=== PATIENT | male | born 1965 | race Hispanic/Latino ===

== ENCOUNTER → 2023-06-06 | Outpatient (CLI) | payer SELFPAY ==
[~2023-06-06] MED LIST: NEBI10TA12 PO; TAMS-1 PO; TRAM50TA4 PO
[2023-06-06 11:25] LABS: CREATININE 1.5 mg/dL (0.5-1.5); POTASSIUM 4.4 mmol/L (3.5-5.1)
[2023-06-06 11:31] LABS: BASOPHILS # (AUTO) 0.04 K/uL (0.00-0.20); BASOPHILS % (AUTO) 0.5 % (0.0-5.0); EOSINOPHILS % (AUTO) 2.3 % (0.0-8.0); HEMATOCRIT 49.8 % (42-54); IMMATURE GRANULOCYTE ABSOLUTE 0.02 K/uL (0-1); LYMPHOCYTES # (AUTO) 1.1 K/uL (1.0-4.8); LYMPHOCYTES % (AUTO) 13.1 % (21.0-51.0); MEAN CORPUSCULAR HEMOGLOBIN 31.6 pg (27.0-33.0); MEAN CORPUSCULAR HGB CONC 34.7 g/dL (32.0-36.0); MEAN CORPUSCULAR VOLUME 90.9 fL (79-99); MONOCYTES # (AUTO) 0.8 K/uL (0.1-1.0); MONOCYTES % (AUTO) 9.8 % (3.0-13.0); NEUTROPHILS # (AUTO) 6.3 K/uL (1.8-7.7); NEUTROPHILS % (AUTO) 74.1 % (40.0-77.0); PLATELET COUNT (AUTO) 203 K/uL (130-400); RED BLOOD CELL COUNT(AUTO) 5.48 MIL/uL (4.50-6.20); RED CELL DISTRIBUTION WIDTH 12.3 % (11.0-15.5); WHITE BLOOD COUNT (AUTO) 8.6 K/uL (4.8-10.8)
[2023-06-06 11:56] VITALS: BP 128/82; PULSE 55; RESP 12
== END | disposition home or self-care (01) ==
LOC: DAH 10:00 → EDSTATUS 06-08 09:40
PROVIDERS: ATTEND Student in an Organized Health Care Education/Training Program
DX: Z01.818 Encounter for other preprocedural examination (principal); G56.21 Lesion of ulnar nerve, right upper limb; E03.9 Hypothyroidism, unspecified; Z83.3 Family history of diabetes mellitus; Z53.8 Procedure and treatment not carried out for other reasons
CPT/HCPCS: 36415; 71045; 80048; 85025; 93005

== ENCOUNTER 2023-07-04 06:02 | Day surgery (SDC) | payer SELFPAY ==
[2023-06-27 12:12] LABS: BASOPHILS # (AUTO) 0.06 K/uL (0.00-0.20); BASOPHILS % (AUTO) 0.9 % (0.0-5.0); EOSINOPHILS % (AUTO) 3.2 % (0.0-8.0); HEMATOCRIT 51.7 % (42-54); IMMATURE GRANULOCYTE ABSOLUTE 0.02 K/uL (0-1); LYMPHOCYTES # (AUTO) 1.3 K/uL (1.0-4.8); LYMPHOCYTES % (AUTO) 20.7 % (21.0-51.0); MEAN CORPUSCULAR HEMOGLOBIN 32.4 pg (27.0-33.0); MEAN CORPUSCULAR HGB CONC 34.2 g/dL (32.0-36.0); MEAN CORPUSCULAR VOLUME 94.5 fL (79-99); MONOCYTES # (AUTO) 0.7 K/uL (0.1-1.0); MONOCYTES % (AUTO) 10.8 % (3.0-13.0); NEUTROPHILS # (AUTO) 4.1 K/uL (1.8-7.7); NEUTROPHILS % (AUTO) 64.1 % (40.0-77.0); PLATELET COUNT (AUTO) 192 K/uL (130-400); RED BLOOD CELL COUNT(AUTO) 5.47 MIL/uL (4.50-6.20); RED CELL DISTRIBUTION WIDTH 13.2 % (11.0-15.5); WHITE BLOOD COUNT (AUTO) 6.3 K/uL (4.8-10.8)
[2023-06-27 12:16] VITALS: BP 139/85; PULSE 47; RESP 12
[2023-06-27 12:27] LABS: INR 0.98 (0.85-1.15); PROTHROMBIN TIME 11.4 SEC (9.6-11.6)
[2023-06-27 12:28] LABS: CREATININE 1.2 mg/dL (0.5-1.5); POTASSIUM 4.6 mmol/L (3.5-5.1)
[2023-06-27 12:29] LABS: PARTIAL THROMBOPLASTIN TIME 27.9 SEC (26.3-35.5)
[~2023-07-04] VITALS: Ht 172.7 cm; Wt 76.1 kg
[2023-07-04] VITALS (17 sets, daily range): BP systolic 110–147; BP diastolic 69–92; PULSE 55–91; RESP 13–16
[2023-07-04] MEDS ORDERED: LACTATED RINGERS 1000ML 1,000 ML IV ONE (06:18)
[2023-07-04] MEDS ORDERED: CEFAZOLIN SODIUM 2 GM VIAL ONE (06:18)
[2023-07-04] MEDS ORDERED: FENTANYL CITRATE PF 50 MCG/1 ML 2ML VIAL ONE (07:10)
[2023-07-04] MEDS ORDERED: PROPOFOL 10 MG/ML 20ML VIAL IV ONE (07:10)
[2023-07-04] MEDS ORDERED: MIDAZOLAM HCL 1 MG/ML 2ML VIAL ONE (07:10)
[2023-07-04] MEDS ORDERED: LIDOCAINE PF 100MG/5ML (2%) SYRINGE 5ML ONE (07:16)
[2023-07-04] MEDS ORDERED: ROCURONIUM 10MG/1ML SYR 10 MG/ML ML ONE (07:16)
[2023-07-04] MEDS ORDERED: CEFAZOLIN SODIUM 2 GM VIAL IVPB ONE (07:19)
[2023-07-04] MEDS ORDERED: BUPIVACAINE/PF 0.25% 30ML VIAL IJ ONE ×2 (07:20→07:21)
[2023-07-04] MEDS ORDERED: EPHEDRINE SULFATE 50 MG/ML AMPULE ONE (07:20)
[2023-07-04] MEDS ORDERED: BUPIVACAINE/PF 0.5% 30ML VIAL ONE (07:21)
[2023-07-04] MEDS ORDERED: GLYCOPYRROLATE 1 MG/5 ML SYRINGE ONE (08:11)
[2023-07-04] MEDS ORDERED: TRAM50TA4 PO ×2 (08:30)
== END 2023-07-04 10:45 | disposition home or self-care (01) ==
LOC: DAH 06:02
PROVIDERS: ATTEND Student in an Organized Health Care Education/Training Program
DX: G56.21 Lesion of ulnar nerve, right upper limb (principal); I10 Essential (primary) hypertension; E03.9 Hypothyroidism, unspecified; Z83.3 Family history of diabetes mellitus; Z79.01 Long term (current) use of anticoagulants; Z79.899 Other long term (current) drug therapy
CPT/HCPCS: 36415; 80048; 85025; 85730; 85610; 64718; A4663; A4606; J7120; J3010; J3490 ×2; J0665 ×3; J2001; J2250; J2704; J0690 ×2; A4649; A5120; A4215; A4223; A4222; A4221